=== PATIENT | male | born 1955 | race Caucasian/White ===

== ENCOUNTER → 2017-11-12 12:43 | Outpatient (CLI) | payer OTHER, SELFPAY ==
--- NOTE | 2017-11-12 | DI.MRI.S_ITS ---
PROCEDURE: MR WRIST LT W CON INDICATIONS: LEFT WRIST PAIN TECHNIQUE: After the administration of 3-4 mL of dilute intra-articular Gadolinium contrast into the radiocarpal compartment, coronal T1 spin echo with fat saturation and T2 fast spin echo with fat saturation, axial T1 spin echo and T2 fast spin echo with fat saturation, sagittal T1 spin echo with and without fat saturation through the wrist. COMPARISON: None. FINDINGS: Image quality: Excellent. Bones and cartilage: The carpal bones are normally aligned. No bone marrow contusions or fractures. No evidence for avascular necrosis. Overlying cartilage surfaces appear grossly preserved. There are a few small nonspecific cystic changes within the carpus likely representing ganglion cysts. Carpal ligaments: There is irregular full-thickness tearing of the scapholunate ligament along its scaphoid attachment with gadolinium extravasation into the mid-carpal compartment. The lunotriquetral ligament appears intact. The radioscaphocapitate and radiolunotriquetral ligaments appear grossly intact. The dorsal intercarpal and radiotriquetral ligaments appear intact. On sagittal images, the pisohamate ligament appears intact. Triangular fibrocartilage complex: There is degeneration of the triangular fibrocartilage with small degenerative perforation near its radial attachment. There is irregular degenerative tearing at its foveal and styloid attachments. There is a minimal amount of gadolinium extravasation into the distal radioulnar joint. The adjacent meniscal homolog appears normal. The ulnar collateral ligament appears intact. The extensor carpi ulnaris tendon is normal in location and morphology. Tendons and soft tissues: The carpal tunnel structures appear normal, including the median nerve. The ulnar nerve appears normal within Guyon's canal. All six extensor tendon compartments demonstrate normal morphology, without pathologic tendon sheath fluid. No soft tissue ganglion cysts. IMPRESSION: 1. Irregular full-thickness tearing of the scapholunate ligament. 2. Complex tearing of the triangular fibrocartilage as described. Dictated by: Se Krishnan M.D. on 11/12/2017 at 17:04 Approved by: Se Krishnan M.D. on 11/12/2017 at 17:11
--- NOTE | 2017-11-12 | DI.RAD.S_ITS ---
PROCEDURE: FL WRIST INJECTION MR/CT LT INDICATIONS: LEFT WRIST PAIN LEFT SHOULDER PAIN TECHNIQUE: After informed consent had been obtained, the wrist was examined fluoroscopically, and a site chosen for injection of the radiocarpal compartment from a dorsal approach. Skin was prepped and draped in a sterile fashion and 1% lidocaine infiltrated from the skin down to the articular surface. A hypodermic needle was then introduced into the articular space and a modest amount of contrast medium was instilled confirming intra-articular needle tip placement. This was followed by approximately 4 mL of a dilute gadolinium solution. Needle was removed and dressing was applied. The patient experienced no complications throughout the procedure and left the fluoroscopic suite in no apparent distress. FINDINGS: A single fluoroscopic spot image demonstrates intra-articular location to injected iodinated contrast. IMPRESSION: Successful fluoroscopic-guided administration of dilute Gadolinium solution for wrist MR arthrogram. Dictated by: Magnus Zapata M.D. on 11/12/2017 at 14:02 Approved by: Magnus Zapata M.D. on 11/12/2017 at 14:02
--- NOTE | 2017-11-12 | DI.MRI.S_ITS ---
PROCEDURE: MR SHOULDER LT WO CON INDICATIONS: LEFT SHOULDER PAIN TECHNIQUE: Noncontrast oblique coronal T2 fast spin echo with fat saturation, oblique sagittal T1 spin echo and T2 fast spin echo with fat saturation, axial T1 spin echo and T2 fast spin echo with fat saturation through the shoulder. COMPARISON: None. FINDINGS: Image quality: There is motion artifact. Rotator cuff: There is mild tearing along the leading edge of the supraspinatus at its insertion measuring approximately 5 mm in anteroposterior dimension. More posteriorly, there is mild partial thickness bursal sided tear involving the posterior supraspinatus fibers. The infraspinatus, subscapularis, teres minor appear intact. There is tendinopathy in the distal subscapularis. Sagittal images demonstrate no fatty muscle atrophy. Bones and bursae: No bone marrow contusions or fractures. There is moderate acromioclavicular joint degeneration. The acromion demonstrates mild lateral downsloping, without an os acromiale. A small amount of subacromial-subdeltoid or subcoracoid bursal fluid is present. Capsule and soft tissues: There is undersurface tearing along the superior and posterosuperior labrum. There is also irregularity of the anteroinferior and inferior labrum suggestive of degenerative tearing. In the absence of intra-articular contrast, the glenohumeral ligaments appear intact. The long head of the biceps tendon demonstrates normal location and morphology. The rotator interval appears normal, without fibrosis. The coracohumeral ligament is normal in thickness. IMPRESSION: 1. Mild bursal sided tearing of the supraspinatus at its insertion including a tear at its leading edge. 2. Moderate acromioclavicular joint degeneration with a small amount of subacromial/subdeltoid bursal fluid. 3. Tearing of the superior and posterosuperior labrum. Degenerative signal also noted in the anteroinferior and inferior labrum. Dictated by: Se Krishnan M.D. on 11/12/2017 at 17:39 Approved by: Se Krishnan M.D. on 11/12/2017 at 17:46
== END ==
PROVIDERS: Visit Provider Physician Assistant Surgical
DX: S63.592A Other specified sprain of left wrist, initial encounter (principal); S43.432A Superior glenoid labrum lesion of left shoulder, initial encounter; M75.102 Unspecified rotator cuff tear or rupture of left shoulder, not specified as traumatic; M19.012 Primary osteoarthritis, left shoulder; M25.532 Pain in left wrist; M25.512 Pain in left shoulder
CPT/HCPCS: 20605; 73221; 73222; 76000

== ENCOUNTER → 2019-01-17 11:11 | Outpatient (CLI) | payer OTHER, SELFPAY ==
[2019-01-17 13:15] LABS: Cholesterol 226 mg/dL (140-199); HDL Cholesterol 43 mg/dL (40-60); LDL Cholesterol Calculated 164 mg/dL (<100); Triglycerides 95 mg/dL (35-150)
[2019-01-17 13:48] LABS: Vitamin D 25 Hydroxy (D3) 28.5 ng/mL (30.0-100.0)
== END ==
PROVIDERS: Visit Provider Student in an Organized Health Care Education/Training Program
DX: E55.9 Vitamin D deficiency, unspecified (principal); Z13.220 Encounter for screening for lipoid disorders; Z12.5 Encounter for screening for malignant neoplasm of prostate
CPT/HCPCS: 36415; 80061; 82306; G0103

== ENCOUNTER → 2019-06-22 08:05 | Outpatient (CLI) | payer OTHER, SELFPAY ==
--- NOTE | 2019-06-22 08:07 | DI.US.S_ITS ---
PROCEDURE: US ABD AORTA ANEURYSM SCREEN INDICATIONS: HISTORY SMOKING TECHNIQUE: Real time scanning was performed of the aorta and iliac arteries, with image documentation. COMPARISON: None. FINDINGS: Aorta: Proximal aortic diameter measures 2.2 cm. Mid-aorta measures 2.0 cm. Distal aortic diameter is 2.1 cm. Iliac arteries: Right common iliac artery measures 1.2 cm. Left common iliac artery measures 1.1 cm. IMPRESSION: Negative examination. No aneurysm identified. Dictated by: Jim Llanes M.D. on 06/22/2019 at 9:16 Approved by: Jmi Llanes M.D. on 06/22/2019 at 9:18
== END ==
PROVIDERS: PCP Student in an Organized Health Care Education/Training Program; Referring Provider Student in an Organized Health Care Education/Training Program; Visit Provider Student in an Organized Health Care Education/Training Program
DX: Z13.6 Encounter for screening for cardiovascular disorders (principal); Z87.891 Personal history of nicotine dependence
CPT/HCPCS: 76706

== ENCOUNTER → 2021-08-07 09:51 | Outpatient (CLI) | payer OTHER, SELFPAY ==
[2021-08-08 12:48] LABS: Fecal Immunochemical Test Positive (Negative)
== END ==
PROVIDERS: PCP Student in an Organized Health Care Education/Training Program; Referring Provider Student in an Organized Health Care Education/Training Program; Visit Provider Student in an Organized Health Care Education/Training Program
DX: Z12.11 Encounter for screening for malignant neoplasm of colon (principal)
CPT/HCPCS: 82274

== ENCOUNTER → 2021-09-08 08:46 | Outpatient (CLI) | payer OTHER, SELFPAY ==
[2021-09-08 12:15] LABS: COVID-19 CEPHEID PCR (VTM/NP) Negative (Negative)
== END ==
PROVIDERS: PCP Student in an Organized Health Care Education/Training Program; Visit Provider Family Medicine Sleep Medicine
DX: Z20.822 Contact with and (suspected) exposure to COVID-19 (principal)
CPT/HCPCS: C9803; U0003; U0005

== ENCOUNTER → 2022-05-05 07:31 | Outpatient (CLI) | payer OTHER, SELFPAY ==
[2022-05-05 08:40] LABS: Influenza A - CEPHEID Flu A NEGATIVE (NEGATIVE); Influenza B - CEPHEID Flu B NEGATIVE (NEGATIVE); Respiratory Syncytial Virus Negative (Negative)
[2022-05-05 08:41] LABS: COVID-19 CEPHEID 4-PLEX PCR Negative (Negative)
== END ==
PROVIDERS: PCP Student in an Organized Health Care Education/Training Program; Visit Provider Physician Assistant Medical
DX: R50.9 Fever, unspecified (principal)
CPT/HCPCS: 0241U

== ENCOUNTER → 2023-06-17 10:13 | Outpatient (CLI) | payer MEDICARE, OTHER, SELFPAY ==
[2023-06-17 11:33] LABS: Add Manual Diff / Slide Review NO; Basophils Absolute Auto 0 /uL (0-100); Basophils Percent Auto 0.7 % (0-2); Eosinophils Absolute Auto 100 /uL (0-450); Eosinophils Percent Auto 1.4 % (2-4); Hematocrit 45.2 % (41-53); Hemoglobin 15.4 g/dL (13.5-17.5); Lymphocytes Absolute Auto 1800 /uL (1100-4500); Lymphocytes Percent Auto 29.6 % (25-40); Mean Corpuscular HGB Conc 34.1 % (30-36); Mean Corpuscular Hemoglobin 31.9 PG (26-34); Mean Corpuscular Volume 93.5 fL (80-100); Monocytes Absolute Auto 900 /uL (0-900); Monocytes Percent Auto 15.3 % (3-14); Neutrophils Absolute Auto 3200 /uL (1500-7000); Platelet Count 257 X10^3/uL (150-400); Red Blood Cell Count 4.83 X10^6/uL (4.5-5.9); Red Cell Distribution Width 12.7 % (11.6-14.8)
[2023-06-17 12:06] LABS: Alanine Aminotransferase 25 IU/L (<50); Albumin 4.3 g/dL (3.5-5.0); Albumin Globulin Ratio 1.4 (1.0-2.8); Alkaline Phosphatase 55 U/L (38-126); Aspartate Aminotransferase 29 IU/L (17-59); BUN Creatinine Ratio 16.1 (6-22); Bilirubin Total 1.1 mg/dL (0.2-1.3); Blood Urea Nitrogen 14 mg/dL (9-20); Calcium 9.5 mg/dL (8.4-10.2); Carbon Dioxide 28 mmol/L (22-32); Chloride 103 mmol/L (98-107); Cholesterol 259 mg/dL (140-199); Estimated Glomerular Filt Rate > 60 mL/min (>60); Glucose 112 mg/dL (80-110); HDL Cholesterol 50 mg/dL (40-60); HEMOLYSIS < 15 (0-50); LDL Cholesterol Calculated 183 mg/dL (<100); Potassium 4.8 mmol/L (3.4-5.1); Sodium 135 mmol/L (137-145); Total Protein 7.3 g/dL (6.3-8.2); Triglycerides 128 mg/dL (35-150)
[2023-06-17 12:34] LABS: Prostate Specific Antigen Scrn 2.03 ng/mL (0.1-4.0)
== END ==
PROVIDERS: PCP Family Medicine; Referring Provider Family Medicine; Visit Provider Family Medicine
DX: E78.2 Mixed hyperlipidemia (principal); Z12.5 Encounter for screening for malignant neoplasm of prostate; G47.30 Sleep apnea, unspecified; R59.0 Localized enlarged lymph nodes
CPT/HCPCS: 36415; 80053; 80061; 85025; G0103

== ENCOUNTER 2024-11-15 10:01 | Observation (INO) | payer MEDICARE, OTHER, SELFPAY ==
[2024-11-15] VITALS (12 sets, daily range): BP systolic 145–177; BP diastolic 78–95; PULSE 55–81; RESP 16–22; TEMP 36.3–36.5; O2SAT 93–99; BMI 27.1
--- NOTE | 2024-11-15 10:29 | EKG_ITS ---
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
--- NOTE | 2024-11-15 10:30 | DI.CT.S_ITS ---
PROCEDURE: CT HEAD/BRAIN WO CON INDICATIONS: Dizziness/ataxia TECHNIQUE: Noncontrast 4.5 mm thick angled axial sections acquired from the foramen magnum to the vertex, with coronal and sagittal reformats. For radiation dose reduction, the following was used: automated exposure control, adjustment of mA and/or kV according to patient size. COMPARISON: None. FINDINGS: Image quality: Diagnostic. CSF spaces: Basal cisterns are patent. No extra-axial fluid collections. The ventricles are symmetric in size and shape. Brain: No intracranial bleeds or mass effect. There is cerebral volume loss, with resultant ventricular and sulcal prominence. There are periventricular and deep white matter chronic small vessel ischemic changes. There is intracranial internal carotid artery atherosclerosis. Skull and face: Calvarium and visualized facial bones appear intact, without suspicious lesions. Sinuses: Visualized sinuses and mastoids are clear. IMPRESSION: No acute intracranial pathology. Dictated by: Kenyatta Cardoza MD, PhD on 11/15/2024 at 10:58 Approved by: Kenyatta Cardoza MD, PhD on 11/15/2024 at 11:00
--- NOTE | 2024-11-15 10:30 | DI.CT.S_ITS ---
PROCEDURE: CT ANGIO HEAD AND NECK INDICATIONS: Dizziness/ataxia TECHNIQUE: After the administration of intravenous contrast, 1 mm thick sections acquired from the aortic arch through the Resighini of Romero. 3-dimensional yowwzja-fpujthhcd-tyfistlexr (MIP) and/or volume rendering reformats were acquired of the central intracranial vasculature and neck separately. For radiation dose reduction, the following was used: automated exposure control, adjustment of mA and/or kV according to patient size. COMPARISON: CT head November 15, 2024. FINDINGS: Image quality: Diagnostic. Cerebral CT Angiogram: Internal carotid arteries: No acute findings. Intracranial ICA are patent with no significant stenosis. No occlusion. No aneurysm. Anterior cerebral arteries: Unremarkable. No significant stenosis. No occlusion. No aneurysm. Middle cerebral arteries: Unremarkable. No significant stenosis. No occlusion. No aneurysm. Posterior cerebral arteries: Unremarkable. No significant stenosis. No occlusion. No aneurysm. Basilar artery: Unremarkable. No significant stenosis. No occlusion. No aneurysm. Vertebral arteries: Unremarkable as visualized. Dural venous sinuses: Unremarkable given phase of enhancement. Other: Arterial phase appearance of the brain parenchyma is unremarkable. Neck CT Angiogram: Internal carotid arteries: Unremarkable. Mild atherosclerotic plaque in the origins of the internal carotid arteries which causes mild, less than 50% stenosis of the vessels. No dissection or occlusion. Common carotid arteries: Unremarkable. No significant stenosis. No dissection or occlusion. External carotid arteries: Unremarkable. No occlusion. Vertebral arteries: Unremarkable. Mild atherosclerotic plaque in the origin of the right vertebral artery which causes mild narrowing of the vessel. Origin of the left vertebral artery is fully patent. No dissection or occlusion. Aortic Arch and Mediastinum: Partially visualized aortic arch unremarkable without evidence of aneurysm. Origins of the great vessels unremarkable. Other: Arterial phase soft tissues of the neck and chest are unremarkable. Spine degenerative disc disease and facet arthropathy. IMPRESSION: No large vessel occlusion, significant vascular stenosis, vascular dissection or aneurysm. Any quantitative measurements of stenosis were performed using NASCET criteria. Dictated by: Kenyatta Cardoza MD, PhD on 11/15/2024 at 11:01 Approved by: Kenyatta Cardoza MD, PhD on 11/15/2024 at 11:06
[2024-11-15] MEDS: MECLIZINE HCL 12.5 MG TABLET 50 MG PO (10:33)
[2024-11-15] MEDS: SODIUM CHLORIDE 0.9% 1,000 ML 1000 ML IV (10:33)
--- NOTE | 2024-11-15 10:35 | ED.DIZZY ---
HPI - Dizziness General Chief Complaint: Dizziness Stated Complaint: vertigo dizziness lack of stability Time Seen by Provider: 11/15/24 10:22 Source: patient and family Mode of arrival: Ambulatory History of Present Illness HPI Narrative: Patient here with . Complains of dizziness and near-syncope that started 11:30 a.m. yesterday while driving as well as parking lot of a store. Patient states intensity last about 5 minutes however symptoms persist feeling off balance and feeling foggy with his thought. This past Wednesday had expressive aphasia. Had hard time finding his words while at religion. That has resolved. Patient and deny any facial droop numbness tingling or weakness or limb weakness. No headache. No prior history of stroke. No family history of stroke. Denies any chest pain shortness of breath. No recent illness otherwise. Patient states has had vertigo in the past but this feels different. Related Data Previous Rx's ?Medication ?Instructions ?Recorded lovastatin 20 mg tablet 20 mg PO QPM #90 tabs 06/17/23 sildenafil 100 mg tablet 100 mg PO DAILY PRN sexual 08/06/23 activity #15 tabs Allergies Allergy/AdvReac Type Severity Reaction Status Date / Time No Known Drug Allergies Allergy Verified 11/15/24 10:20 Review of Systems Review of Systems Narrative: GENERAL: Negative chills, fatigue, malaise, fever, positive sweats. HEENT: Negative sinus pain, ear pain, sore throat RESPIRATORY: Negative dyspnea, cough CARDIOVASCULAR: Negative chest pain, palpitations GASTROINTESTINAL: Negative vomiting, positive not nausea, negative abdominal pain : Negative dysuria, frequency, hematuria MUSCULOSKELETAL: Negative muscle or bony pain SKIN: Negative rash, skin lesions NEUROLOGIC: Negative weakness, numbness positive dizziness ROS Unobtainable: All systems reviewed & are unremarkable except as noted in HPI and below Patient History Medical History Prediabetes Alcohol use disorder Colon polyps Pain of right thumb Vision disorder Hearing loss Sleep apnea (~1999) Shoulder pain (~2016) Vertigo (~1999) Tinnitus (~1999) Surgical History Anesthesia History of arthroscopic knee surgery (~1999) Family History Mother Alzheimer's disease Social History household members: spouse Smoking Status: Never smoker alcohol intake: current Smoking Status: Never smoker Exam Narrative Exam Narrative: GENERAL: in no distress, not toxic not dyspneic HEAD: Normocephalic. EYES: Pupils equal round ENT: Mucous membranes moist. NECK: Trachea midline. CARDIOVASCULAR: Regular rate and rhythm RESPIRATORY: Clear to auscultation. Breath sounds equal bilaterally. No wheezes, rales, or rhonchi. GASTROINTESTINAL: Abdomen soft, non-tender EXTREMITIES: No gross deformities. BACK: No flank tenderness. NEURO: AOx4. Clear speech fast exam is negative. Clear speech no facial droop light touch intact bilateral face hands and legs strong equal public relations consultant no pronator drift or leg drift. SKIN: Warm and dry PSYCH: Not anxious, is cooperative Initial Vital Signs Initial Vital Signs: Vital Signs Pulse Rate 64 11/15/24 10:13 Scores NIH Stroke Scale Level of Conciousness: Alert, keenly responsive Ask month/age: Answers both questions correctly. Open/close eyes, close hand: Performs both tasks correctly Best gaze horizontal: Normal Visual salazar: No visual loss Facial palsy: Normal symetrical movement Left arm drift: No drift for full 10 sec Right arm drift: No drift for full 10 sec Left leg drift: No drift for full 5 sec Right leg drift: No drift for full 5 sec Limb ataxia: Absent Sensory on face/arms/legs: Normal, no sensory loss Best language: No aphasia, normal Dysarthria: Normal Extinction or inattention: No abnormality Total NIH Stroke scale score: 0 Course Orders Ordered: ED Orders 11/15/24 10:15 Complete Blood Count AUTO DIFF Stat Comprehensive Metabolic Panel Stat PTT Partial Thromboplastin Hair Stat Prothrombin Time INR Stat Troponin & CK Cardiac Panel Stat 11/15/24 10:29 EKG-12 Lead Stat 11/15/24 10:30 CT angio head and neck Stat CT head/brain wo con Stat Acetaminophen (Acetaminophen 325 Mg Tablet) 650 mg PO Q6H PRN PRN Reason: Fever/Mild Pain (1-3) Hydrocodone Bitart/Acetaminophen (Hydrocodone/Acet 5/325 Tablet) 1 tab PO Q4H PRN PRN Reason: Pain, Moderate (4-6) Acetazolamide (Acetazolamide 250 Mg Tablet) 125 mg PO BID FLORENCIO Heparin Sodium (Porcine) (Heparin 5,000 Unit/Ml Vial) 5,000 unit SUBCUT BID FLORENCIO Sodium Chloride (Normal Saline 0.9%) 1,000 mls @ 75 mls/hr IV CONT [facility] Last Admin: 11/15/24 16:38 Dose: 75 mls/hr Documented By: JUVENAL Ibuprofen (Ibuprofen 400 Mg Tablet) 400 mg PO Q4H PRN PRN Reason: Pain, Mild (1-3) Meclizine HCl (Meclizine Hcl 12.5 Mg Tablet) 12.5 mg PO Q6HR [facility] Last Admin: 11/15/24 17:23 Dose: 12.5 mg Documented By: JUVENAL Methylprednisolone (Methylprednisolone 40 Mg/Ml Vial) 20 mg IV Q12HR [facility] Naloxone HCl (Naloxone 0.4 Mg/Ml Vial) 0.2 mg IV Q2MIN PRN PRN Reason: Opiate Reversal Pseudoephedrine HCl (Pseudoephedrine 30 Mg Tablet) 30 mg PO Q6HR [facility] Last Admin: 11/15/24 17:24 Dose: Not Given Documented By: JUVENAL Discontinued Medications Sodium Chloride (Normal Saline 0.9%) 1,000 mls @ 1,000 mls/hr IV BOLUS ONE Stop: 11/15/24 11:29 Last Infusion: 11/15/24 14:18 Dose: Infused Documented By: Admin: 11/15/24 10:33 Dose: 1,000 mls/hr Documented By: Meclizine HCl (Meclizine Hcl 12.5 Mg Tablet) 50 mg PO NOW ONE Stop: 11/15/24 10:30 Last Admin: 11/15/24 10:33 Dose: 50 mg Documented By: Vital Signs Vital signs: Vital Signs - 8 hr 11/15/24 10:30 11/15/24 10:30 11/15/24 10:53 Pulse Rate 62 60 Respiratory Rate 21 20 Blood Pressure 156/86 H Pulse Oximetry 99 99 Oxygen Delivery Method Room Air 11/15/24 10:53 11/15/24 11:00 11/15/24 11:00 Pulse Rate 59 L Respiratory Rate 18 Blood Pressure 166/86 H 163/84 H Pulse Oximetry 99 Oxygen Delivery Method 11/15/24 11:30 11/15/24 11:30 11/15/24 11:56 Pulse Rate 63 Respiratory Rate 21 Blood Pressure 148/85 H 161/86 H Pulse Oximetry 98 Oxygen Delivery Method 11/15/24 11:56 11/15/24 12:00 11/15/24 12:00 Pulse Rate 59 L 55 L Respiratory Rate 16 22 Blood Pressure 157/87 H Pulse Oximetry 93 97 Oxygen Delivery Method 11/15/24 12:30 11/15/24 12:30 Pulse Rate 56 L Respiratory Rate 19 Blood Pressure 177/91 H Pulse Oximetry 99 Oxygen Delivery Method Room Air MDM - Dizziness Lab Data 11/15/24 10:15 11/15/24 10:15 Labs: Lab Results 11/15/24 Range/Units 10:15 WBC 5.8 (4.5-11.0) X10^3/uL RBC 4.84 (4.5-5.9) X10^6/uL Hgb 15.6 (13.5-17.5) g/dL Hct 44.9 (41-53) % MCV 92.7 (80-100) fL MCH 32.1 (26-34) PG MCHC 34.7 (30-36) % RDW 13.0 (11.6-14.8) % Plt Count 257 (150-400) X10^3/uL Neut % (Auto) 53.0 (50-75) % Lymph % (Auto) 31.6 (25-40) % [place] % (Auto) 12.7 (3-14) % Eos % (Auto) 1.9 L (2-4) % Baso % (Auto) 0.8 (0-2) % Neut # (Auto) 3100 (9933-1786) /uL Lymph # (Auto) 1800 (8036-5343) /uL [place] # (Auto) 700 (0-900) /uL Eos # (Auto) 100 (0-450) /uL Baso # (Auto) 0 (0-100) /uL PT 11.0 (9.4-12.5) SECONDS INR 1.0 (0.9-1.3) APTT 28 (25.1-36.5) SECONDS Sodium 135 L (137-145) mmol/L Potassium 3.7 (3.4-5.1) mmol/L Chloride 105 (98-107) mmol/L Carbon Dioxide 22 (22-32) mmol/L BUN 15 (9-20) mg/dL Creatinine 0.99 (0.66-1.25) mg/dL Estimated GFR > 60 (>60) mL/min BUN/Creatinine Ratio 15.2 (6-22) Glucose 134 H (70-99) mg/dL Calcium 9.3 (8.4-10.2) mg/dL Total Bilirubin 1.2 (0.2-1.3) mg/dL AST 34 (17-59) IU/L ALT 32 (<50) IU/L Alkaline Phosphatase 60 (38-126) U/L Total Creatine Kinase 43 L (55-170) U/L Troponin I < 0.012 (0.01-0.034) ng/mL Total Protein 7.6 (6.3-8.2) g/dL Albumin 4.5 (3.5-5.0) g/dL Globulin 3.1 (1.7-4.1) g/dL Albumin/Globulin Ratio 1.5 (1.0-2.8) Imaging Data CT scan - head: Radiologist's Impression: [address] [address] [address] Scan Report Signed Patient: Curtis Horner MR#: [id number] : 1955 Acct:[id number] Age/Sex: 69 / M Date of Service: 11/15/24 Loc: ED Accession Number: [id number] Procedure: CT head/brain wo con Ordering Provider: Alejandro Prajapati MD PROCEDURE: CT HEAD/BRAIN WO CON INDICATIONS: Dizziness/ataxia TECHNIQUE: Noncontrast 4.5 mm thick angled axial sections acquired from the foramen magnum to the vertex, with coronal and sagittal reformats. For radiation dose reduction, the following was used: automated exposure control, adjustment of mA and/or kV according to patient size. COMPARISON: None. FINDINGS: Image quality: Diagnostic. CSF spaces: Basal cisterns are patent. No extra-axial fluid collections. The ventricles are symmetric in size and shape. Brain: No intracranial bleeds or mass effect. There is cerebral volume loss, with resultant ventricular and sulcal prominence. There are periventricular and deep white matter chronic small vessel ischemic changes. There is intracranial internal carotid artery atherosclerosis. Skull and face: Calvarium and visualized facial bones appear intact, without suspicious lesions. Sinuses: Visualized sinuses and mastoids are clear. IMPRESSION: No acute intracranial pathology. Dictated by: Kenyatta Cardoza MD, PhD on 11/15/2024 at 10:58 Approved by: Kenyatta Cardoza MD, PhD on 11/15/2024 at 11:00 CTA - brain/neck: Radiologist's Impression: [address] [address] [address] Scan Report Signed Patient: Curtis Horner MR#: [id number] : 1955 Acct:[id number] Age/Sex: 69 / M Date of Service: 11/15/24 Loc: ED Accession Number: [id number] Procedure: CT angio head and neck Ordering Provider: Alejandro Prajapati MD PROCEDURE: CT ANGIO HEAD AND NECK INDICATIONS: Dizziness/ataxia TECHNIQUE: After the administration of intravenous contrast, 1 mm thick sections acquired from the aortic arch through the [place]. 3-dimensional wjyfwbl-hxfpabdxb-sczxcpfkxq (MIP) and/or volume rendering reformats were acquired of the central intracranial vasculature and neck separately. For radiation dose reduction, the following was used: automated exposure control, adjustment of mA and/or kV according to patient size. COMPARISON: CT head November 15, 2024. FINDINGS: Image quality: Diagnostic. Cerebral CT Angiogram: Internal carotid arteries: No acute findings. Intracranial ICA are patent with no significant stenosis. No occlusion. No aneurysm. Anterior cerebral arteries: Unremarkable. No significant stenosis. No occlusion. No aneurysm. Middle cerebral arteries: Unremarkable. No significant stenosis. No occlusion. No aneurysm. Posterior cerebral arteries: Unremarkable. No significant stenosis. No occlusion. No aneurysm. Basilar artery: Unremarkable. No significant stenosis. No occlusion. No aneurysm. Vertebral arteries: Unremarkable as visualized. Dural venous sinuses: Unremarkable given phase of enhancement. Other: Arterial phase appearance of the brain parenchyma is unremarkable. Neck CT Angiogram: Internal carotid arteries: Unremarkable. Mild atherosclerotic plaque in the origins of the internal carotid arteries which causes mild, less than 50% stenosis of the vessels. No dissection or occlusion. Common carotid arteries: Unremarkable. No significant stenosis. No dissection or occlusion. External carotid arteries: Unremarkable. No occlusion. Vertebral arteries: Unremarkable. Mild atherosclerotic plaque in the origin of the right vertebral artery which causes mild narrowing of the vessel. Origin of the left vertebral artery is fully patent. No dissection or occlusion. Aortic Arch and Mediastinum: Partially visualized aortic arch unremarkable without evidence of aneurysm. Origins of the great vessels unremarkable. Other: Arterial phase soft tissues of the neck and chest are unremarkable. Spine degenerative disc disease and facet arthropathy. IMPRESSION: No large vessel occlusion, significant vascular stenosis, vascular dissection or aneurysm. Any quantitative measurements of stenosis were performed using NASCET criteria. Dictated by: Kenyatta Cardoza MD, PhD on 11/15/2024 at 11:01 Approved by: Kenyatta Cardoza MD, PhD on 11/15/2024 at 11:06 [facility] Narrative Medical decision making narrative: Patient here with . Complains of dizziness and near-syncope that started 11:30 a.m. yesterday while driving as well as parking lot of a store. Patient states intensity last about 5 minutes however symptoms persist feeling off balance and feeling foggy with his thought. This past Wednesday had expressive aphasia. Had hard time finding his words while at religion. That has resolved. Patient and deny any facial droop numbness tingling or weakness or limb weakness. No headache. No prior history of stroke. No family history of stroke. Denies any chest pain shortness of breath. No recent illness otherwise. Patient states has had vertigo in the past but this feels different. After history and exam, EKG troponin PT PTT CBC CMP CT head CT angiogram head and neck, may need admission for balance of workup for TIA/stroke., Antivert ordered normal saline ordered MDM Differential considered: Includes but not limited to TIA stroke vertigo sinusitis Medical records reviewed: No recent visit for this complaint Lab Test results independently reviewed as above. Pertinent findings: WBC 5.8 hemoglobin 15.6 sodium 135 potassium 3.7 BUN 15 creatinine 0.99 GFR greater than 60 glucose 134 troponin less than 0.012 Independently reviewed EKG normal sinus rhythm rate [address]-elevation or depression Imaging studies independently reviewed: CT head CT angiogram head neck no acute finding Consultations: 12:45 p.m. s/w dr leon, hospitalist, agrees for admission. Re-evaluations: 12:30 p.m.. Patient is still symptomatic after meclizine. Has not resolved. Reviewed results with them they do agree for admission. Discussion: Appropriate for admission. Patient states this feels different from his typical vertigo. Does agree for admission. Knees balance workup for stroke/TIA. Diagnosis: Dizziness Discharge Plan Departure Patient Disposition: Admitted as Observation Clinical Impression: Dizziness Admit Date/Time: 11/15/24 12:59 Admit Provider: Jeronimo Leon
[2024-11-15 10:36] LABS: Add Manual Diff / Slide Review NO; Hematocrit 44.9 % (41-53); Hemoglobin 15.6 g/dL (13.5-17.5); INR 1.0 (0.9-1.3); Lymphocytes Absolute Auto 1800 /uL (1100-4500); Mean Corpuscular HGB Conc 34.7 % (30-36); Mean Corpuscular Hemoglobin 32.1 PG (26-34); Mean Corpuscular Volume 92.7 fL (80-100); Platelet Count 257 X10^3/uL (150-400); Prothrombin Time 11.0 SECONDS (9.4-12.5)
[2024-11-15 10:39] LABS: PTT Partial Thromboplastin Tim 28 SECONDS (25.1-36.5)
[2024-11-15 10:40] LABS: Alanine Aminotransferase 32 IU/L (<50); Albumin 4.5 g/dL (3.5-5.0); Albumin Globulin Ratio 1.5 (1.0-2.8); Alkaline Phosphatase 60 U/L (38-126); Blood Urea Nitrogen 15 mg/dL (9-20); Calcium 9.3 mg/dL (8.4-10.2); Carbon Dioxide 22 mmol/L (22-32); Chloride 105 mmol/L (98-107); Creatine Kinase 43 U/L (55-170); Estimated Glomerular Filt Rate > 60 mL/min (>60); Globulin 3.1 g/dL (1.7-4.1); Glucose 134 mg/dL (70-99); HEMOLYSIS 18 (0-50); Potassium 3.7 mmol/L (3.4-5.1); Sodium 135 mmol/L (137-145); Total Protein 7.6 g/dL (6.3-8.2)
[2024-11-15 10:52] LABS: Troponin I < 0.012 ng/mL (0.01-0.034)
--- NOTE | 2024-11-15 12:00 | PC.NURSE ---
Pt up in hallway ambulating. States feeling much better.
--- NOTE | 2024-11-15 15:27 | PC.NURSE ---
Pt arrived from ED; A/O, denies discomfort or dizziness SBA to BR w/o incidence. SL intact/patent. Pt oriented to room & call system. Plan is to await MRI Call light w/in reach, pt calls appropriately for needs Continue w/plan of care
--- NOTE | 2024-11-15 15:30 | DI.MRI.S_ITS ---
PROCEDURE: MR HEAD/BRAIN WO CON INDICATIONS: Vertigo TECHNIQUE: Non-contrast axial T1 spin echo, axial T2 fast spin echo, sagittal and axial FLAIR, coronal T2 fast spin echo, axial gradient echo, axial diffusion and ADC through the brain. COMPARISON: [facility], CT, CT ANGIO HEAD AND NECK, 11/15/2024, 10:47. [facility], CT, CT HEAD/BRAIN WO CON, 11/15/2024, 10:47. FINDINGS: Image quality: Excellent. CSF spaces: Ventricles appear symmetric in size and shape. Basal cisterns are patent. There is an arachnoid cyst seen involving the posterior aspect of the posterior fossa. Brain: No intracranial bleeds or mass effects. There is cerebral volume loss for age. There are periventricular and deep white matter chronic small vessel ischemic changes. Brainstem appears normal. Diffusion-weighted images show no acute infarct. No chronic ischemic insults. Normal intravascular flow voids are present. Skull and face: Calvarial bone marrow is normal in signal. Orbits are normal. Sinuses: Sinuses and mastoids are clear. IMPRESSION: No imaging explanation is found for this patient's presenting symptoms. No findings of acute or subacute infarction can be seen. To the limits of this noncontrast study, no findings of intracranial masses or mass effect can be seen. Dictated by: Akash Cao M.D. on 11/15/2024 at 18:21 Approved by: Akash Cao M.D. on 11/15/2024 at 18:22
[2024-11-15] MEDS: SODIUM CHLORIDE 0.9% 1,000 ML 75 ML IV (16:38)
[2024-11-15] MEDS: MECLIZINE HCL 12.5 MG TABLET PO (17:23)
--- NOTE | 2024-11-15 19:31 | P.HP_ITS ---
History of Present Illness History of Present Illness Date Patient Seen: 11/15/24 Chief complaint: vertigo dizziness lack of stability Narrative: Chief complaint: Disturbance of balance feeling like he is blacking out suspect positional vertigo History of present illness: Patient would out of automobile felt like he was going to blackout and was going to fall over seemed to pass went to bed had similar symptoms this morning came to the emergency room for evaluation Findings in the emergency room unremarkable comprehensive metabolic CBC MRI of the brain and angiography were all normal Review of systems: No fever or chills No chest pain palpitations No nausea vomiting diarrhea No urinary symptoms Paresthesia paresis Physical exam: No acute distress alert and oriented No labored respirations Moves all extremity Symptoms not reproducible with head movements For objective laboratory and imaging reports please see the bottom of the note: Assessment and plan Vertigo favor labyrinthitis benign positional vertigo * For drug cocktail Diamox, methylprednisolone, Antivert, Sudafed observation overnight DVT prophylaxis: * Not indicated Code status: * Full code blue 55 minutes were involved in management of this patient including nihy-te-glef evaluation physical examination discussion with physician patient and spouse review of images and reports MRI CT and laboratory reports [facility] Medical History Prediabetes Alcohol use disorder Colon polyps Pain of right thumb Vision disorder Hearing loss Sleep apnea (~1999) Shoulder pain (~2016) Vertigo (~2000) Tinnitus (~2000) Surgical History Anesthesia History of arthroscopic knee surgery (~1999) Family History Mother Alzheimer's disease Social History household members: spouse Smoking Status: Never smoker alcohol intake: current Meds Home Medications and Allergies Home Medications ?Medication ?Instructions ?Recorded ?Confirmed ?Type lovastatin 20 mg tablet 20 mg PO QPM #90 tabs 06/17/23 Rx sildenafil 100 mg tablet 100 mg PO DAILY PRN sexual 0 08/06/23 Rx activity #15 tabs Allergies Allergy/AdvReac Type Severity Reaction Status Date / Time No Known Drug Allergies Allergy Verified 11/15/24 10:20 Exam Vital Signs (past 8 hours): - 11/15/24 11:56 11/15/24 11:56 11/15/24 12:00 Pulse Rate 59 L Respiratory Rate 16 Blood Pressure 161/86 H 157/87 H Pulse Oximetry 93 Oxygen Delivery Method 11/15/24 12:00 11/15/24 12:30 11/15/24 12:30 Pulse Rate 55 L 56 L Respiratory Rate 22 19 Blood Pressure 177/91 H Pulse Oximetry 97 99 Oxygen Delivery Method Room Air 11/15/24 13:00 11/15/24 13:00 Pulse Rate 62 Respiratory Rate 17 Blood Pressure 151/88 H Pulse Oximetry 98 Oxygen Delivery Method Room Air Oxygen Delivery Method Room Air Objective Labs 11/15/24 10:15 11/15/24 10:15 Labs: Laboratory Results - last 24 hr 11/15/24 10:15 WBC 5.8 RBC 4.84 Hgb 15.6 Hct 44.9 MCV 92.7 MCH 32.1 MCHC 34.7 RDW 13.0 Plt Count 257 Neut % (Auto) 53.0 Lymph % (Auto) 31.6 [place] % (Auto) 12.7 Eos % (Auto) 1.9 L Baso % (Auto) 0.8 Neut # (Auto) 3100 Lymph # (Auto) 1800 [place] # (Auto) 700 Eos # (Auto) 100 Baso # (Auto) 0 PT 11.0 INR 1.0 APTT 28 Sodium 135 L Potassium 3.7 Chloride 105 Carbon Dioxide 22 BUN 15 Creatinine 0.99 Estimated GFR > 60 BUN/Creatinine Ratio 15.2 Glucose 134 H Calcium 9.3 Total Bilirubin 1.2 AST 34 ALT 32 Alkaline Phosphatase 60 Total Creatine Kinase 43 L Troponin I < 0.012 Total Protein 7.6 Albumin 4.5 Globulin 3.1 Albumin/Globulin Ratio 1.5 Assessment & Plan Time-Based Coding :: [TOTAL MINUTES] spent with patient and on the chart (including review of chart, obtaining history, exam, reviewing outside data, placing orders, documenting exam and treatment plan, and counseling patient) on [DATE].
--- NOTE | 2024-11-15 20:05 | DI.ECHO.S_ITS ---
[facility] : : [address] : : [place] : : [id number] : : Phone: [phone] Echocardiogram Report + + :Name: PETERSON TORRES Study Date: 11/16/2024 Height: 72 in : :[facility] ReadingLocation: Weight: 200 lb : : Gender: Male BSA: 2.1 m2 : :: 1955 Age: 69 yrs BP: 143/90 mmHg: :Reason For Study: STROKE LIKE SYMPTOMS : :Ordering Physician: JOSE ANTONIO, : :ZORAN Performed By: Yaneth Angulo : :Referring: ZORAN BRADY : + + Interpretation Summary Normal biventricular size and systolic function. LVEF is 55 to 60%. Agitated saline study does not show any odfgz-sq-xvfz shunting. Procedure: A two-dimensional transthoracic echocardiogram with color flow and Doppler was performed in limited views only to assess stroke like symptoms.. The study quality was technically adequate. There is no prior echocardiogram noted for this patient. The patient was in sinus rhythm with heart rates between 77-86 bpm during the exam. Left Ventricle: The left ventricle is normal in size and wall thickness. The ejection fraction is estimated to be 55-60%. Right Ventricle: The right ventricle grossly appears normal in size with probable normal systolic function. Atria: The left atrial size is normal. There is no Doppler evidence for an interatrial shunt. Injection of contrast documented no interatrial shunt. Mitral Valve: The mitral valve leaflets appear to open well. There is no mitral annular calcification. Aortic Valve: The aortic valve is trileaflet. The aortic valve opens well. Tricuspid Valve: The tricuspid valve leaflets are thin and pliable. Pericardium/ Pleura There is no pericardial effusion. There is no pleural effusion. MMode/2D Measurements & Calculations LVIDd: 4.4 cm LA A2 area: 24.5 cm2 LVIDs: 2.9 cm LA A4 area: 16.3 cm2 FS: 33.8 % LA length (vol): 5.0 cm IVSd: 0.71 cm LA vol: 67.1 ml LVPWd: 1.00 cm LA vol index: 31.5 ml/m2 LV reed. diameter/BSA (cm/m^2): 2.1 LV sys. diameter/BSA (cm/m^2): 1.4 RVD1 (basal): 3.7 cm RVD2 (mid): 3.3 cm TAPSE: 2.0 cm Reading Physician:12:49 PM
[2024-11-16] VITALS: BP 143/90; PULSE 71; RESP 16; TEMP 36.4; O2SAT 98
[2024-11-16] MEDS: MECLIZINE HCL 12.5 MG TABLET PO ×3 (00:07→11:59)
[2024-11-16 04:00] VITALS: BP 140/80; PULSE 76; RESP 16; TEMP 36.2; O2SAT 97
[2024-11-16] MEDS: PSEUDOEPHEDRINE 30 MG TABLET PO ×2 (06:35→11:59)
[2024-11-16 08:00] VITALS: BP 145/80; PULSE 88; RESP 15; TEMP 36.2; O2SAT 96
[2024-11-16] MEDS: HEPARIN 5,000 UNIT/ML VIAL 5000 UNIT SUBCUT (08:43)
[2024-11-16 12:00] VITALS: BP 160/80; PULSE 90; RESP 16; TEMP 36.1; O2SAT 99
--- NOTE | 2024-11-16 12:41 | CM.DANOTE ---
Initial DCP Assessment Note Pt is a 69 yo male, resident of [place], admitted OBS for vertigo, stroke r/o. Patient waiting on echo and then will likely be discharged home this afternoon. PCP: Renard Parker Payer: HOA/Laura Reviewed chart, pt discussed in multidisciplinary rounds this morning. Patient lives independently with spouse and expects to return home, denies any discharge needs. No barriers identified at this time to patient's safe discharge home w/family to assist; close outpatient f/u recommended. Social work team will plan to follow clinical course closely in case any DC needs or concerns arise. ROMY Massey Discharge Planning/Care Management CM Discharge Assessment Start: 11/15/24 13:16 Freq: Status: Active Protocol: Document 11/16/24 11:34 JERMAINE (Rec: 11/16/24 12:41 JERMAINE [id number]) Discharge Planning Assessment Assigned Discharge ROMY Shi Software Administrator DPOA/Assigned Zuri Horner, spouse Designee Name Contact Information [phone] Advance Directives? No History Provided By Patient,Family Member Prior Living House Arrangements Household Members spouse Independent with ADL Yes 's Is patient alert and Yes oriented? Comment Independent Comment Home w/spouse Barriers to No Discharge Discharge Plan Home Transportation Family Arrangement Referrals Initiated None needed
--- NOTE | 2024-11-16 16:19 | P.DS_ITS ---
History of Present Illness History of Present Illness Date Patient Seen: 11/16/24 Chief complaint: vertigo dizziness lack of stability Narrative: Chief complaint: Disturbance of balance feeling like he is blacking out suspect positional vertigo History of present illness: Patient would out of automobile felt like he was going to blackout and was going to fall over seemed to pass went to bed had similar symptoms this morning came to the emergency room for evaluation Findings in the emergency room unremarkable comprehensive metabolic CBC MRI of the brain and angiography were all normal. Hospital course: No problems overnight no more for the vertigo echocardiogram is normal patient discharged home on the medications below Review of systems: No fever or chills No chest pain palpitations No nausea vomiting diarrhea No urinary symptoms Paresthesia paresis Physical exam: No acute distress alert and oriented No labored respirations Moves all extremity Symptoms not reproducible with head movements For objective laboratory and imaging reports please see the bottom of the note: Assessment and plan Vertigo favor labyrinthitis benign positional vertigo discharge home * For drug cocktail Diamox, methylprednisolone, Antivert, Sudafed observation overnight DVT prophylaxis: * Not indicated Code status: * Full code blue 55 minutes were involved in management of this patient including [id number] evaluation physical examination discussion with physician patient and spouse review of images and reports MRI CT and laboratory reports Discharge Providers Provider Date of admission: 11/15/24 12:59 Discharge Date: 11/16/24 Primary care physician: Renard Parker DO Discharge provider: Jeronimo Patel MD Exam Vital Signs (past 8 hours): - 11/16/24 12:00 Temperature 97.0 F L Pulse Rate 90 Respiratory Rate 16 Blood Pressure 160/80 H Pulse Oximetry 99 Oxygen Flow Rate 0 Oxygen Delivery Method Room Air Oxygen Flow Rate 0 Objective Labs 11/15/24 10:15 11/15/24 10:15 FOR[facility], [facility] Medical History Prediabetes Alcohol use disorder Colon polyps Pain of right thumb Vision disorder Hearing loss Sleep apnea (~1999) Shoulder pain (~2016) Vertigo (~2000) Tinnitus (~2000) Surgical History Anesthesia History of arthroscopic knee surgery (~1999) Family History Mother Alzheimer's disease Social History household members: spouse Smoking Status: Never smoker alcohol intake: current Discharge Plan Discharge Plan Patient Disposition: Home Discharge orders & Medications Prescriptions: New acetazolamide 250 mg Tablet 125 mg PO BID Qty: 3 0RF meclizine 12.5 mg Tablet 12.5 mg PO Q6HR Qty: 12 0RF pseudoephedrine HCl 30 mg Tablet 30 mg PO Q6HR Qty: 10 9RF prednisone 10 mg tablet 10 mg PO DAILY Qty: 3 0RF Continued sildenafil 100 mg tablet 100 mg PO DAILY PRN (Reason: sexual activity) Qty: 15 5RF Rx Instructions: administer 30 minutes to 4 hours before activity lovastatin 20 mg tablet 20 mg PO QPM Qty: 90 1RF Follow up/Referrals: Renard Parker DO [Primary Care Provider, Family Practice] Visit Report/Discharge Packet Stand Alone Forms: Patient Portal/API, Stroke Signs & Symptoms Discharge Data Primary Care Provider: Renard Parker Attending Provider: Jeronimo Patel [place]man[place] Date/Time: 11/15/24 12:59
--- NOTE | 2024-11-16 16:57 | PC.NURSE ---
D/c instructions reviewed with pt. Medications reviewed with pt. IV and tele removed. Pt exited with RN to private vehicle.
== END 2024-11-16 16:50 | disposition home or self-care (01) ==
LOC: ED 10:37 → AC 12:59
PROVIDERS: Admitting Provider Internal Medicine; Emergency Provider Emergency Medicine; PCP Family Medicine; Referring Provider Emergency Medicine; Visit Provider Internal Medicine
DX: R42 Dizziness and giddiness (principal); R55 Syncope and collapse; R29.700 NIHSS score 0
CPT/HCPCS: 36415; 70450; 70496; 70498; 70551; 80053; 82550; 84484; 85025; 85610; 85730; 93005; 93307; 96361; 96372; 96374; 96376; 99284; G0378; A9579; J1644; J2919; Q9967

== ENCOUNTER 2025-02-14 06:16 | Day surgery (SDC) | payer MEDICARE, OTHER, SELFPAY ==
[2024-11-15 13:16] VITALS: BMI 27.1
[2025-01-31 14:34] VITALS: BMI 27.8
[2025-02-14 06:43] VITALS: BP 136/83; PULSE 67; RESP 16; TEMP 36.5; O2SAT 97
[2025-02-14] MEDS: ACETAMINOPHEN 325 MG TABLET 975 MG PO (07:04)
[2025-02-14] MEDS: LACTATED RINGERS 1,000 ML 42 ML IV (07:04)
--- NOTE | 2025-02-14 07:38 | PM.HP.IH.1 ---
History of Present Illness History of Present Illness Date Patient Seen: 02/14/25 Time Patient Seen: 07:38 Chief complaint: Robotic L inguinal hernia repair w/mesh Narrative: Curtis is a 69-year-old man with a left inguinal hernia. See the office note for details. [facility] Medical History Inguinal hernia Prediabetes Alcohol use disorder Colon polyps Pain of right thumb Vision disorder Hearing loss Sleep apnea (~1999) Shoulder pain (~2016) Vertigo (~1999) Tinnitus (~1999) Surgical History Anesthesia History of arthroscopic knee surgery (~1999) Family History Mother Alzheimer's disease Social History household members: spouse Smoking Status: Former smoker alcohol intake: current Meds Home Medications and Allergies Home Medications ?Medication ?Instructions ?Recorded ?Confirmed ?Type sildenafil 100 mg tablet 100 mg PO DAILY PRN sexual 12/08/24 02/14/25 Rx activity #30 tabs tadalafil 20 mg tablet (Cialis) 20 mg PO DAILY PRN sexual activity 12/08/24 02/14/25 Rx #30 tabs Allergies Allergy/AdvReac Type Severity Reaction Status Date / Time No Known Drug Allergies Allergy Verified 02/14/25 06:42 Exam Vital Signs (past 8 hours): - 02/14/25 06:43 Temperature 97.7 F Pulse Rate 67 Respiratory Rate 16 Blood Pressure 136/83 Pulse Oximetry 97 Oxygen Delivery Method Room Air Oxygen Delivery Method Room Air Const General: No acute distress Objective Labs Labs: Laboratory Results - last 24 hr 02/14/25 06:57 POC Whole Bld Glucose 135 H Assessment & Plan Assessment and plan (1) Left inguinal hernia: Status: Acute Plan Robotic left inguinal hernia repair with mesh Time-Based Coding :: [TOTAL MINUTES] spent with patient and on the chart (including review of chart, obtaining history, exam, reviewing outside data, placing orders, documenting exam and treatment plan, and counseling patient) on [DATE]. [employer] Author Document charge(s): No
--- NOTE | 2025-02-14 08:24 | SUR.OPER ---
Supine on padded OR bed, pink pad in place, head on pillow, arms padded and tucked at sides, legs uncrossed, safety belt at thigh, strap over shoulders, face foam in place. surgeon present for positioning .
[2025-02-14 09:31] VITALS: BP 156/82; PULSE 85; RESP 24; TEMP 36.8; O2SAT 97
[2025-02-14 09:35] VITALS: BP 156/76; PULSE 77; RESP 15; O2SAT 95
[2025-02-14 09:40] VITALS: BP 143/72; PULSE 74; RESP 18; TEMP 36.7; O2SAT 95
[2025-02-14 09:45] VITALS: BP 139/77; PULSE 73; RESP 17; O2SAT 95
--- NOTE | 2025-02-14 09:49 | P.OP_ITS ---
Operative Date/Time/Diagnoses Date of procedure: 02/14/25 Time of procedure: 09:49 Pre-op diagnosis: Left inguinal hernia Post-op diagnosis: other (Left indirect inguinal hernia) Procedure & Clinicians Procedure: Robotic left inguinal hernia repair with mesh Same procedure(s) as scheduled: Yes Surgeon: Tyson Calderon Assisted?: Yes Electric Organ Inspector And Repairer: Jose E Monreal Anesthesia Type: General Operative Notes Findings: Large indirect left inguinal hernia containing sigmoid colon Applied: none Estimated Blood Loss (mL): 8 Procedure in detail: The patient was given preoperative antibiotics. The patient was brought to the operating room, placed on the table in the supine position with the arms tucked and general anesthesia was induced. The abdomen was prepped and draped in the usual fashion. A time-out was performed. A 1 cm transverse incision was created superior to the umbilicus and dissection was carried down to the fascia. The fascia was grasped with a Ramos clamp to elevate the abdominal wall. The fascia was scored transversely with cautery. A Peon clamp was used to ortiz the peritoneum. The 12 mm robotic port was placed and the abdomen was insufflated to 15 mmHg. The camera was inserted, there was no evidence of any injury from the entry. There was a rather large left indirect inguinal hernia with some sigmoid colon adherent to the hernia sac. 8 mm ports were placed under direct vision in the mid left and mid right abdomen. The patient was positioned in Trendelenburg. The robot was docked. We created left peritoneal flap. The peritoneum was dissected off the left cord structures and the sac was dissected out of the internal ring. Eran's ligament was exposed. An extra- large large left Bard mesh was brought in and placed over the defect with the medial edge overlapping the pubic symphysis. We then closed the peritoneal flap with a running 3-0 barbed suture. We took one last look around the abdomen and saw no other abnormalities. The suture was removed and accounted for. The robot was undocked. The 8 mm ports were removed under direct vision. The abdomen was desufflated. The 12 mm port was removed. Additional local was injected into the fascia and the fascial incision was closed with 2 interrupted 0 Vicryl sutures. The skin incisions were closed with 4 Monocryl, Steri-Strips and Band-Aids. Jose E JOHNSON provided assistance with exposure, retraction and closure of incisions. Complications: none Post-operative Condition: stable Disposition: PACU
[2025-02-14 10:40] VITALS: BP 139/78; PULSE 73; RESP 17; TEMP 36.7; O2SAT 95
== END 2025-02-14 10:49 | disposition home or self-care (01) ==
PROVIDERS: PCP Family Medicine; Referring Provider Surgery; Visit Provider Surgery
PROC: 0YQ64ZZ Repair Left Inguinal Region, Percutaneous Endoscopic Approach (ICD-10-PCS; CPT 49650; principal; 2025-02-14 07:45)
DX: K40.90 Unilateral inguinal hernia, without obstruction or gangrene, not specified as recurrent (principal); R73.03 Prediabetes; Z87.891 Personal history of nicotine dependence
CPT/HCPCS: 49650; 82962; S2900; C1781; J0689; J1100; J1885; J2405; J2704; J3010; J7120